=== PATIENT | male | born 1965 | race Caucasian/White ===

== ENCOUNTER 2016-10-31 02:09 | Observation (INO) | payer MEDICARE, OTHER ==
[~2016-10-31] VITALS: Ht 190.5 cm; Wt 112.9 kg
[~2016-10-31 02:09] MED LIST: ACETAMINOPHEN325 MG PO; ALBUTEROL HFA6.7 GM IH; CELEXA40 MG PO; CYMBALTA60 MG PO; GLUCOPHAGE1000 MG PO; KLONOPIN2 MG PO; LACTULOSE10 GM/151 PO; LANTUS SOL100 UNIT/1 SQ; LEVAQUIN750 MG PO; LIPITOR40 MG PO; LYRICA150 MG PO; NICOTINE PATCH1 EAC2 TD; NORVASC5 MG PO; NOVOLOG1 UNIT/0.0 SQ; OXYCODONE HCL10 MG PO; OXYCONTIN30 MG PO; PREDNISONE10 MG PO; PROTONIX40 MG PO; SPIRIVA18 MCG IH; TESSALON PERLE100 MG PO; ZESTRIL40 MG PO
== END 2016-11-02 14:50 | disposition home or self-care (01) ==
LOC: ER 02:09 → MED 04:42
PROVIDERS: ADMIT Internal Medicine
DX: R07.9 Chest pain, unspecified (principal); J40 Bronchitis, not specified as acute or chronic; E11.65 Type 2 diabetes mellitus with hyperglycemia; E11.21 Type 2 diabetes mellitus with diabetic nephropathy; E11.319 Type 2 diabetes mellitus with unspecified diabetic retinopathy without macular edema; A04.7 Enterocolitis due to Clostridium difficile; K21.9 Gastro-esophageal reflux disease without esophagitis; G89.29 Other chronic pain; G47.33 Obstructive sleep apnea (adult) (pediatric); J44.9 Chronic obstructive pulmonary disease, unspecified; I10 Essential (primary) hypertension; N17.9 Acute kidney failure, unspecified; E86.0 Dehydration; Z87.891 Personal history of nicotine dependence; Z79.1 Long term (current) use of non-steroidal anti-inflammatories (NSAID); Z79.4 Long term (current) use of insulin; Z79.899 Other long term (current) drug therapy
CPT/HCPCS: 36415; 80307; 87507; 93306; 96361; 96372; 96374; 96375; G0378; J1650